=== PATIENT | male | born 1990 | race Caucasian/White ===

== ENCOUNTER 2018-08-24 19:16 | Emergency (ER) | payer OTHER, SELFPAY ==
[2018-08-24 19:32] VITALS: BP 137/96; PULSE 89; RESP 20; TEMP 36.8; O2SAT 98
--- NOTE | 2018-08-24 19:47 | DI.RAD_ITS ---
SYMPTOM/DIAGNOSIS: PAIN, TRAUMA RIGHT HAND: There is mild soft tissue swelling over the dorsum of the hand. There is no evidence of a fracture or dislocation.
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
== END 2018-08-24 21:48 | disposition home or self-care (01) ==
PROVIDERS: Emergency Provider Nurse Practitioner Family
DX: S60.221A Contusion of right hand, initial encounter (principal); W22.09XA Striking against other stationary object, initial encounter; Y99.0 Civilian activity done for income or pay
CPT/HCPCS: 29125; 99284; 73130; 99283; L3908

== ENCOUNTER 2019-05-31 19:42 | Emergency (ER) | payer OTHER, SELFPAY ==
[2019-05-31 19:45] VITALS: BP 167/89; PULSE 91; RESP 16; TEMP 36.9; O2SAT 98
--- NOTE | 2019-05-31 20:34 | DI.RAD_ITS ---
EXAM: XR FOOT RT COMPLETE INDICATION: pain, r/o fx 4th or 5th metatarsal and digits. COMPARISON: LEFT FOOT COMPLETE from 01/18/2013 TECHNIQUE: 2D digital imaging was performed. FINDINGS: Three views were obtained. There is a mildly displaced fracture of the midshaft of the proximal phal anx of the 5th toe. No other fracture seen. IMPRESSION:
--- NOTE | 2019-05-31 20:47 | ED.GENADUL_ITS ---
Discharge Plan Disposition Patient Disposition: HOME Condition: Good Discharge Details Chief Complaint: Orthopedic Clinical Impression: Fracture of toe Primary Care Provider: Doris Alvarez ED Provider: Jinny Campbell Home Meds and New Rx's Prescriptions: No Action ibuprofen [IBU] 600 mg tablet 600 mg PO QID PRN (Reason: pain) Qty: 20 RF: 0 Discharge Instructions Instructions: Toe Fracture (ED) Additional Instructions: Rest. Activities as tolerated. Elevate injury to prevent swelling. Ice to the area of discomfort for 15 min. 3-5 times daily. Motrin every 8 hours with food or Tylenol every 6 hours for soreness if needed over the counter for comfort. Followup with orthopedic doctor as discussed for reevaluation. Derrick tape and postoperative shoe for support until cleared by orthopedics. Return for any worsening or concerns sooner if needed. Referrals: Dameon Callaway MD [ [facility] STAFF PHYSICIAN] - Medical Decision Making Pleasant 28-year-old reports stopping his toe on his right foot. Patient ultimately presents with ecchymotic and swollen base of the fourth and fifth toes. X-ray reveals a fracture at the proximal phalanx of the fifth toe. No open fracture. Patient consents to derrick tape and postoperative shoe. Declines crutches. Referred to orthopedics. Rice encouraged. Prior to discharge, my usual and customary return precautions were reviewed with the patient - this included follow-up instructions and reasons to return to the Emergency Department if conditions worsens, does not improve as expected, or other new concerns arise. HPI General Date/Time Provider Initiated Documentation: 05/31/19 20:04 . HPI Narrative: Very pleasant 28-year-old patient presents to the emergency room after stubbing his toe yesterday. Patient reports persistent right fifth toe pain. Limping gait. Ecchymosis and swelling present. Patient denies any open wounds. Relieved when resting worse when ambulating. No other concerns or complaints. Related Data Home Medications Medication Instructions Recorded Confirmed ibuprofen [IBU] 600 mg PO QID PRN #20 tab 08/24/18 05/31/19 Previous Rx's Medication Instructions Recorded ibuprofen [IBU] 600 mg PO QID PRN #20 tab 08/24/18 Allergies Allergy/AdvReac Type Severity Reaction Status Date / Time animal dander Allergy Unverified 05/31/19 19:48 General Stated Complaint: Orthopedic AMITA: 3 Review of Systems Review of Systems ROS Unobtainable: All systems reviewed & are unremarkable except as noted in HPI and below ENT Ears, Nose, Mouth, and Throat: Denies neck pain Musculoskeletal Musculoskeletal: Denies back pain, Denies deformity, Denies neck pain and Denies numbness Integumentary/Breasts Skin/Breast: Denies wounds Neurologic Neurologic: Denies numbness and Denies paresthesias PFS Social History Smoking/Tobacco Use Status: Never Alcohol Intake: current Alcohol Intake frequency: a few times a month Alcohol type: beer Drug use: Never Do you feel safe at home: Yes Do you feel safe in your relationship?: Yes Exam Narrative Exam Narrative: CONST: Healthy appearing patient, in no acute distress. Well hydrated. Alert and alert. MUSCULOSKELETAL: Limping gait. Left foot with obvious ecchymosis and mild swelling at the base of the fourth and fifth toe. No oseguera pain with palpation, ankle pain with palpation. Tenderness at the foot noted with palpation of the fourth and fifth digits as well as the fourth and fifth meta tarsals. Pulses intact. Cap refill normal. No open wounds. SKIN: Normal. Dry. No rashes. NEURO: Alert and awake. Speech clear. PSYCH: Normal affect. Cooperative. Course Vital Signs Vital signs: Vital Signs Temperature 36.9 C 05/31/19 19:45 Pulse 91 H 05/31/19 19:45 Respiratory Rate 16 05/31/19 19:45 Blood Pressure 167/89 H 05/31/19 19:45 Pulse Oximetry 98 05/31/19 19:45 Temperature 36.9 C 05/31/19 19:45 Temperature Source Tympanic 05/31/19 19:45 Pulse 91 H 05/31/19 19:45 Respiratory Rate 16 05/31/19 19:45 Respiratory Effort 05/31/19 19:48 Blood Pressure 167/89 H 05/31/19 19:45 Pulse Oximetry 98 05/31/19 19:45 Pain Level 0 05/31/19 19:45 Comment 05/31/19 19:45
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
[2019-05-31 21:04] VITALS: BP 167/89; PULSE 91; RESP 16; O2SAT 98
== END 2019-05-31 21:10 | disposition home or self-care (01) ==
LOC: ER 21:10
PROVIDERS: Emergency Provider Physician Assistant; PCP Family Medicine
DX: S92.511A Displaced fracture of proximal phalanx of right lesser toe(s), initial encounter for closed fracture (principal); W22.8XXA Striking against or struck by other objects, initial encounter
CPT/HCPCS: 26720; 73630

== ENCOUNTER 2019-08-06 15:34 | Emergency (ER) | payer OTHER, SELFPAY ==
[2019-08-06 15:46] VITALS: BP 148/98; PULSE 94; RESP 16; TEMP 36.9; O2SAT 97
--- NOTE | 2019-08-06 15:58 | W.ED.GENAD ---
Discharge Plan Disposition Patient Disposition: HOME Condition: Improving Discharge Details Chief Complaint: Nausea/Vomit/Diar Clinical Impression: Nausea vomiting and diarrhea Primary Care Provider: Christie Salmon ED Provider: Marycarmen Pena Home Meds and New Rx's Prescriptions: New ondansetron HCl [Zofran] 4 mg tablet 4 mg PO Q8H PRN (Reason: nausea and vomiting) Qty: 7 RF: 0 Continued ibuprofen [IBU] 600 mg tablet 600 mg PO QID PRN (Reason: pain) Qty: 20 RF: 0 Discharge Instructions Instructions: Acute Nausea and Vomiting (ED), Acute Diarrhea (ED) Additional Instructions: Drink plenty of fluids and get plenty of rest. Take Zofran as needed and directed for nausea and vomiting. Alternate Tylenol and Motrin as needed and directed for pain. Follow a diet of bland foods while symptoms still present including bananas, rice, applesauce, toast, crackers, pretzels. Advance your diet as tolerated. Follow-up with your primary care doctor within the next week for reevaluation as needed. Return to the emergency department if you develop any worsening or new concerning symptoms. Discharge Data Discharge Physician: Marycarmen Pena Medical Decision Making 1600 -- 28-year-old male presents with vomiting, diarrhea and lower abdominal pain for the past 2 days. States he has had 2 episodes of vomiting today which is mainly been bile and between 10 and 15 episodes of watery brown diarrhea. Admits to intermittent lower crampy abdominal pain that improves with vomiting and diarrhea and then returns. He last had diarrhea here. Denies recent travel, recent antibiotics, new medications or foods. He does admit to sick contacts with his kids who have similar symptoms. Patient dry heaving on exam. Afebrile. Appears uncomfortable but nontoxic. Tenderness across lower abdomen. Differential diagnosis includes gastroenteritis, colitis, viral syndrome, diverticulitis. Will place an IV, bolus IV fluids, Zofran, Toradol and CT abdomen pelvis. 1720 --patient down in radiology and is now refusing CAT scan. He states he feels that he does not need it. He states his symptoms are not improved and when inquired further about this, he states that I just feel like I have to poop. Discussed with patient that he may have the symptoms over the next few days. Discussed that with refusing CAT scan, we may be missing other serious diagnoses and he is aware and still refusing and demonstrates capacity make decisions. 1800 --labs reviewed and unremarkable. Patient states he feels much better and feels good to go home. He was able to take sips of water without further vomiting. He was given a prescription for Zofran, advised to follow the brat diet. Usual and customary return precautions given prior to discharge. Medical Records Medical records reviewed: Yes I reviewed the patient's medical records. Lab Data Lab results reviewed: Yes I reviewed the patient's lab results. Labs: Laboratory Tests Range/Units 08/06/19 08/06/19 16:45 16:45 WBC (4.4-10.8) k/cumm 9.06 RBC (4.50-6.00) m/cumm 5.30 Hgb (13.5-17.5) g/dL 15.9 Hct (40.0-50.0) % 45.5 MCV (80-95) fL 85.8 MCH (27.0-33.0) pg 30.0 MCHC (32.0-36.0) g/dL 34.9 RDW (11.8-14.1) % 13.0 Plt Count (130-400) x1000/uL 366 MPV (8.0-11.0) fL 8.2 Immature Gran % 0.0 Neutrophils % 64.8 Lymphocytes % 27.8 Monocytes % 6.2 Eosinophils % 0.8 Basophils % 0.4 Absolute Neutrophils (1.2-6.7) k/cumm 5.87 Absolute Lymphocytes (1.2-3.4) k/cumm 2.52 Absolute Monocytes (0.11-0.7) k/cumm 0.56 Absolute Eosinophils (0.0-0.7) k/cumm 0.07 Absolute Basophils (0.0-0.2) k/cumm 0.04 Sodium (136-145) mmol/L 142 Potassium (3.5-5.1) mmol/L 3.7 Chloride (98-107) mmol/L 104 Carbon Dioxide (21.0-32.0) mmol/L 29.4 Anion Gap (3-11) mmol/L 8.6 BUN (7-18) mg/dL 10 Creatinine (0.70-1.30) mg/dL 0.93 Estimated GFR/1.73 m2 (mL/min/1.73m2) >= 60.00 Glucose (74-106) mg/dL 90 Calcium (8.5-10.1) mg/dL 9.0 Total Bilirubin (0.2-1.0) mg/dL 0.5 AST (15-37) U/L 32 ALT (16-63) U/L 70 H Alkaline Phosphatase (46-116) U/L 81 Total Protein (6.4-8.2) g/dL 8.0 Albumin (3.4-5.0) g/dL 4.2 Lipase (73-393) U/L 219 HPI General Mode of arrival: ambulatory. Date/Time Provider Initiated Documentation: 08/06/19 15:47. Limitations to Documentation: no limitations. Information obtained by: patient. History of Present Illness 28 year old M presents to the emergency department with the chief complaint of vomiting diarrhea, lower abdominal pain , described as moderate, Quality is described as other (crampy), and is localized to the abdomen. Patient reports no radiation. Patient started experiencing this day(s) (2) and it has been constant. No relieving factors improve symptom(s), No exacerbating factors reported . Patient notes fever/chills and nausea/vomiting; denies chest pain, cough, headaches and shortness of breath. Patient did receive the following treatments prior to arrival, none Related Data Home Medications Medication Instructions Recorded Confirmed ibuprofen [IBU] 600 mg PO QID PRN #20 tab 08/24/18 08/06/19 ondansetron HCl [Zofran] 4 mg PO Q8H PRN #7 tab 08/06/19 Previous Rx's Medication Instructions Recorded ibuprofen [IBU] 600 mg PO QID PRN #20 tab 08/24/18 ondansetron HCl [Zofran] 4 mg PO Q8H PRN #7 tab 08/06/19 Allergies Allergy/AdvReac Type Severity Reaction Status Date / Time animal dander Allergy Unverified 08/06/19 15:49 General Stated Complaint: Nausea/Vomit/Diar AMITA: 3 Review of Systems All systems reviewed & are unremarkable except as noted in HPI and below Constitutional Constitutional: Reports as per HPI, Denies chills and Denies fever(s) Eyes Eyes: Denies blurry vision ENT Ears, Nose, Mouth, and Throat: Denies dizziness, Denies sore throat and Denies throat swelling Cardiovascular Cardiovascular: Denies chest pain and Denies dyspnea Respiratory Respiratory: Denies cough and Denies dyspnea Gastrointestinal Gastrointestinal: Reports abdominal pain, Reports diarrhea and Reports vomiting Genitourinary Genitourinary: Denies hematuria and Denies dysuria Musculoskeletal Musculoskeletal: Denies back pain and Denies numbness Integumentary/Breasts Skin/Breast: Denies lesions and Denies rash Neurologic Neurologic: Denies dizziness, Denies focal weakness and Denies numbness Allergic/Immunologic Allergic/Immunologic: Denies throat swelling [facility] Medical History No significant past medical history (Acute) Surgical History Appendectomy 2002 Family History Mother Diabetes Essential hypertension Father Diabetes Essential hypertension Social History Smoking/Tobacco Use Status: Never Alcohol Intake: current Alcohol Intake frequency: a few times a month Alcohol type: beer Drug use: Never Current gender identity: female Do you feel safe at home: Yes Do you feel safe in your relationship?: Yes Exam Const General: cooperative, healthy appearing and no acute distress HENMT Head: normal to inspection Face and sinus: normal facial exam Eyes General: appearance normal, both eyes and all related structures EOM: EOM intact bilaterally Neck Neck: normal visual inspection and No submandibular swelling Lymphatic: no lymphadenopathy noted Chest Chest: normal inspection of the chest and no tenderness Resp Effort & Inspection: normal respiratory effort and able to speak in complete sentences Auscultation: clear to auscultation bilaterally Cardio Rate: regular rate Rhythm: regular rhythm GI Inspection: normal to inspection Palpation: soft, not firm, not rigid and tender (across lower abdomen) Auscultation: normal bowel sounds Skin General skin exam: no rashes or lesions noted Neuro General: alert, awake and oriented x3 Cognition: normal cognition Speech: speech normal Motor: muscle tone normal throughout Sensory Exam: no sensory deficits noted Extrem General: normal to inspection, full ROM, normal capillary refill, no calf tenderness bilaterally and no edema Psych Appearance: grossly normal Mental Status: mental status grossly normal Speech and Movement: speech and movement normal Affect: normal affect Course Vital Signs Vital signs: Vital Signs Temperature 98.4 F 08/06/19 15:46 Pulse 94 H 08/06/19 15:46 Respiratory Rate 16 08/06/19 15:46 Blood Pressure 148/98 H 08/06/19 15:46 Pulse Oximetry 97 08/06/19 15:46 Temperature 98.4 F 08/06/19 15:46 Temperature Source Skin 08/06/19 15:46 Pulse 94 H 08/06/19 15:46 Respiratory Rate 16 08/06/19 15:46 Respiratory Effort Non-Labored 08/06/19 15:46 Blood Pressure 148/98 H 08/06/19 15:46 Blood Pressure Position Sitting 08/06/19 15:46 Pulse Oximetry 97 08/06/19 15:46 Oxygen Delivery Method Room Air 08/06/19 15:46 Oxygen Flow Rate 0 08/06/19 15:46 Pain Level 6 08/06/19 15:46
[2019-08-06] MEDS: Ondansetron O.D.T. 4 MG TABEF (16:20)
--- NOTE | 2019-08-06 16:24 | NUR.NOTE ---
1615: pt prefers to wait for an available exam room prior to changing into a gown or getting IV MD aware Nursing Note:
[2019-08-06] MEDS: Normal Saline Flush 10 ML SYR IVP (16:45)
[2019-08-06] MEDS: Normal Saline 1,000 ML 1000 ML IV (16:45)
[2019-08-06] MEDS: Ketorolac 30 MG/ML VIAL IVP (16:52)
[2019-08-06] MEDS: Ondansetron 4 MG/2 ML VIAL IVP (16:54)
[2019-08-06 16:56] LABS: Absolute Basophil Count 0.04 k/cumm (0.0-0.2); Absolute Eosinophil Count 0.07 k/cumm (0.0-0.7); Absolute Lymphocyte Count 2.52 k/cumm (1.2-3.4); Absolute Monocyte Count 0.56 k/cumm (0.11-0.7); Absolute Neutrophil Count 5.87 k/cumm (1.2-6.7); Basophils % 0.4; Eosinophils % 0.8; HCT 45.5 % (40.0-50.0); HGB 15.9 g/dL (13.5-17.5); Lymphocytes % 27.8; Mean Corp. HGB Concentration 34.9 g/dL (32.0-36.0); Mean Corpuscular Volume 85.8 fL (80-95); Mean Platelet Volume 8.2 fL (8.0-11.0); Monocytes % 6.2; Neutrophils % 64.8; Platelet Count 366 x1000/uL (130-400); White Blood Cell Count 9.06 k/cumm (4.4-10.8)
[2019-08-06 17:09] LABS: ALT 70 U/L (16-63); AST 32 U/L (15-37); Albumin 4.2 g/dL (3.4-5.0); Alkaline Phosphatase 81 U/L (46-116); Anion Gap 8.6 mmol/L (3-11); BUN 10 mg/dL (7-18); Bilirubin, Total 0.5 mg/dL (0.2-1.0); CO2 29.4 mmol/L (21.0-32.0); CREATININE 0.93 mg/dL (0.70-1.30); Chloride 104 mmol/L (98-107); Glucose 90 mg/dL (74-106); Lipase 219 U/L (73-393); Potassium 3.7 mmol/L (3.5-5.1); Sodium 142 mmol/L (136-145)
[2019-08-06 17:58] VITALS: BP 119/65; PULSE 82; RESP 18; TEMP 36.7; O2SAT 98
[2019-08-06 18:27] VITALS: BP 123/57; PULSE 78; RESP 17; O2SAT 99
[2019-08-06 18:35] VITALS: BP 123/57; PULSE 85; RESP 18; TEMP 36.9; O2SAT 98
== END 2019-08-06 18:40 | disposition home or self-care (01) ==
PROVIDERS: Emergency Provider Physician Assistant; PCP Family Medicine
DX: R11.2 Nausea with vomiting, unspecified (principal); R19.7 Diarrhea, unspecified
CPT/HCPCS: 80053; 83690; 96361; 96374; 96375; 99284; 85025; J1885; J2405

== ENCOUNTER 2020-11-19 11:42 | Outpatient (REF) | payer OTHER, SELFPAY ==
[2020-11-20 13:31] LABS: COVID-19 RT-PCR UVMMC Result Negative (Negative)
== END 2020-11-19 11:43 | disposition home or self-care (01) ==
LOC: NCHCN 11:42
PROVIDERS: PCP Family Medicine; Visit Provider Nurse Practitioner Family
DX: Z20.828 Contact with and (suspected) exposure to other viral communicable diseases (principal)
CPT/HCPCS: U0003

== ENCOUNTER 2020-12-05 14:50 | Outpatient (REF) | payer OTHER, SELFPAY ==
[2020-12-05 20:46] LABS: Hemoglobin A1C 5.1 % (<5.7)
== END 2020-12-05 14:51 | disposition home or self-care (01) ==
LOC: NCHCN 14:50
PROVIDERS: PCP Family Medicine; Visit Provider Family Medicine
DX: R63.1 Polydipsia (principal); Z00.8 Encounter for other general examination
CPT/HCPCS: 83036

== ENCOUNTER 2021-01-20 00:10 | Emergency (ER) | payer OTHER, SELFPAY ==
[2021-01-20 00:15] VITALS: BP 139/79; PULSE 90; RESP 14; TEMP 36.4; O2SAT 96
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
== END 2021-01-20 00:50 | disposition home or self-care (01) ==
PROVIDERS: Emergency Provider Student in an Organized Health Care Education/Training Program; PCP Family Medicine
DX: S01.312A Laceration without foreign body of left ear, initial encounter (principal); W01.198A Fall on same level from slipping, tripping and stumbling with subsequent striking against other object, initial encounter
CPT/HCPCS: 12013

== ENCOUNTER 2021-02-20 09:42 | Emergency (ER) | payer OTHER, SELFPAY ==
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
[2021-02-20 09:46] VITALS: PULSE 71; RESP 14; TEMP 36.9; O2SAT 98
[2021-02-20 10:17] LABS: HCT 47.8 % (40.0-50.0); HGB 16.1 g/dL (13.5-17.5); MCH 29.9 pg (27.0-33.0); MCHC 33.7 % (32.0-36.0); MCV 88.7 fL (80-95); Platelet Count 287 10^3/uL (130-400); RBC 5.39 10^6/uL (4.36-5.78); RDW 12.3 % (11.8-14.1); RDW-SD 40.4 fL; WBC 6.36 10^3/uL (4.4-10.8)
[2021-02-20 10:24] LABS: Anion Gap 7.7 mmol/L (3-11); BUN 17 mg/dL (7-18); CO2 29.3 mmol/L (21.0-32.0); CREATININE 0.9 mg/dL (0.70-1.30); Chloride 104 mmol/L (98-107); Glucose 97 mg/dL (74-106); Potassium 4.4 mmol/L (3.5-5.1); Sodium 141 mmol/L (136-145)
[2021-02-20] MEDS: Normal Saline 250 ML 500 ML IV (10:30)
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
[2021-02-20] MEDS: Omnipaque 350 MG/ML 100 ML BTL IJ (10:42)
[2021-02-20] MEDS: Ketorolac 15 MG/ML VIAL IVP (11:24)
[2021-02-20 11:32] VITALS: BP 122/65; PULSE 67; RESP 24; TEMP 36.8; O2SAT 97
== END 2021-02-20 11:41 | disposition home or self-care (01) ==
LOC: ER 11:37
PROVIDERS: Emergency Provider Emergency Medicine; PCP Family Medicine
DX: S20.222A Contusion of left back wall of thorax, initial encounter (principal); M54.2 Cervicalgia; M54.6 Pain in thoracic spine; V63.5XXA Driver of heavy transport vehicle injured in collision with car, pick-up truck or van in traffic accident, initial encounter; Y99.0 Civilian activity done for income or pay
CPT/HCPCS: 36415; 74177; 80048; 85027; 96361; 96374; 99285; 70450; 71260; 72125; 99284; J1885; J3490

== ENCOUNTER 2021-03-11 18:16 | Outpatient (REF) | payer OTHER, SELFPAY ==
[2021-03-13 13:37] LABS: COVID-19 RT-PCR UVMMC Result Negative (Negative)
== END 2021-03-11 18:17 | disposition home or self-care (01) ==
LOC: LBN 18:16
PROVIDERS: PCP Family Medicine; Visit Provider Nurse Practitioner Family
DX: J02.9 Acute pharyngitis, unspecified (principal); Z20.822 Contact with and (suspected) exposure to COVID-19
CPT/HCPCS: U0003; 87070

== ENCOUNTER 2021-03-19 05:16 | Outpatient (CLI) | payer OTHER, SELFPAY ==
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
== END 2021-03-19 05:36 ==
PROVIDERS: PCP Family Medicine; Visit Provider Nurse Practitioner Family
DX: R10.32 Left lower quadrant pain (principal)
CPT/HCPCS: 74019

== ENCOUNTER 2021-04-07 14:07 | Outpatient (REF) | payer OTHER, SELFPAY ==
[2021-04-09 12:27] LABS: COVID-19 RT-PCR UVMMC Result Negative (Negative)
== END 2021-04-07 14:08 | disposition home or self-care (01) ==
LOC: NCHCN 14:07
PROVIDERS: PCP Family Medicine; Visit Provider Family Medicine
DX: Z20.822 Contact with and (suspected) exposure to COVID-19 (principal)
CPT/HCPCS: U0003

== ENCOUNTER → 2022-02-15 01:49 | Outpatient (CLI) | payer OTHER, SELFPAY ==
--- NOTE | 2022-02-15 07:45 | DI.MRI_ITS ---
Exam(s) MR LOWER JOINT RT WO EXAM: MR LOWER JOINT RT WO CLINICAL HISTORY: persistent Right knee pain/swelling post lifting, rt knee pain, M25.561. TECHNIQUE: Multiplanar multisequence MRI was performed. COMPARISON: No exams were available for comparison FINDINGS: BONES: There is no fracture or contusion pattern. JOINTS: Articular cartilage is unremarkable. There is a small amount of fluid in the joint space. TENDONS: Extensor mechanism: Unremarkable. Medial retinaculum: Unremarkable. Lateral retinaculum: Unremarkable. Popliteus: Unremarkable. MUSCLES: Unremarkable. MENISCI: The medial meniscus is unremarkable. The lateral meniscus is unremarkable. SOFT TISSUES: Unremarkable. LIGAMENTS: Anterior Cruciate: Unremarkable. Posterior Cruciate: Unremarkable. Medial Collateral:Unremarkable. Lateral Collateral: Unremarkable. OTHER: IMPRESSION: 1. There is no evidence of a meniscal or ligament tear. 2. No acute abnormality. DATA REPOSITORY:
== END ==
PROVIDERS: PCP Family Medicine; Visit Provider Nurse Practitioner Family
DX: M25.561 Pain in right knee (principal)
CPT/HCPCS: 73721

== ENCOUNTER 2023-01-04 22:03 | Emergency (ER) | payer OTHER, SELFPAY ==
[2023-01-04] VITALS (10 sets, daily range): BP systolic 127–138; BP diastolic 81–105; PULSE 82–98; RESP 16–26; TEMP 36.8; O2SAT 97–100
--- NOTE | 2023-01-04 22:00 | RT.EKG_ITS ---
APPROVED REPORT Exam: Resting ECG Reason for Exam: chest pain Patient Location: E HR:83 bpm ECG Measurements Heart Rate 83 AXIS NC 167 P 35 QRSd 77 QRS 4 QT 348 T 35 QTc 410 Conclusion Sinus rhythm...normal P axis, V-rate 60- 99. Sinus. Normal axis. Normal intervals. No STEMI. I have reviewed and interpreted ECG and agree with software generated interpretation.
--- NOTE | 2023-01-04 22:15 | DI.RAD_ITS ---
Exam(s) XR CHEST 2V PA LATERAL EXAM: XR CHEST 2V PA LATERAL CLINICAL HISTORY: chest pain TECHNIQUE: 2D digital imaging was performed. COMPARISON: No exams were available for comparison FINDINGS: HEART: Normal size. Aorta: Not dilated. PULMONARY VASCULATURE: Normal. LUNGS: Clear. PLEURAL SPACE: No pleural effusion or pneumothorax. BONE:Unremarkable for age. IMPRESSION: No acute abnormality. DATA REPOSITORY: RADIATION DOSE DELIVERED:
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
[2023-01-04 22:36] LABS: Abs Immature Grans 0.02 10^3/uL (0.0-0.06); Absolute Basophil Count 0.07 10^3/uL (0.0-0.2); Absolute Eosinophil Count 0.29 10^3/uL (0.0-0.7); Absolute Lymphocyte Count 3.84 10^3/uL (1.2-3.4); Absolute Monocyte Count 0.55 10^3/uL (0.1-0.8); Absolute Neutrophil Count 3.01 10^3/uL (1.2-6.7); Basophils % 0.9; Eosinophils % 3.7; HCT 45.6 % (40.0-50.0); HGB 15.8 g/dL (13.5-17.5); Immature Grans % 0.3; Lymphocytes % 49.4; MCH 29.7 pg (27.0-33.0); MCHC 34.6 % (32.0-36.0); MCV 86 fL (80-95); Monocytes % 7.1; Neutrophils % 38.6; Platelet Count 300 10^3/uL (130-400); RBC 5.32 10^6/uL (4.36-5.78); RDW 12.7 % (11.8-14.1); RDW-SD 39.5 fL; WBC 7.78 10^3/uL (4.4-10.8)
[2023-01-04 22:48] LABS: Anion Gap 7.4 mmol/L (3-11); BUN 13 mg/dL (7-18); CO2 29.6 mmol/L (21.0-32.0); CREATININE 0.9 mg/dL (0.70-1.30); Calcium 9.1 mg/dL (8.5-10.1); Chloride 103 mmol/L (98-107); Glucose 94 mg/dL (74-106); Potassium 3.7 mmol/L (3.5-5.1); Sodium 140 mmol/L (136-145)
[2023-01-04 23:06] LABS: Troponin I < 50 ng/L (<or=60)
[2023-01-04] MEDS: Lidocaine 2% Viscous 15 ML CUP (23:24)
[2023-01-04] MEDS: Simethicone/Sod Bicarb/Cit Ac, 4 gram PACKET 1 PACKET PO (23:26)
--- NOTE | 2023-01-04 23:47 | DI.VRAD_ITS ---
PROCEDURE INFORMATION: Exam: XR Chest Exam date and time: 01/04/2023 10:54 PM Age: 32 years old Clinical indication: Other: General; Patient HX: Chest pain TECHNIQUE: Imaging protocol: Radiologic exam of the chest. Views: 2 views. COMPARISON: CT CHEST/ABD/PEL W 02/20/2021 10:34 AM FINDINGS: Lungs: Unremarkable. No consolidation. Pleural spaces: Unremarkable. No pleural effusion. No pneumothorax. Heart/Mediastinum: Unremarkable. No cardiomegaly. Bones/joints: Unremarkable. IMPRESSION: No acute findings. Dictated and Authenticated by: Rui Ryder MD. Ordering:EDINSON Esposito MD
[2023-01-04] MEDS: Pantoprazole 40 MG VIAL IVP (23:53)
[2023-01-04] MEDS: Droperidol 5 MG/2 ML VIAL 2.5 MG IVP (23:54)
[2023-01-04] MEDS: Normal Saline 1,000 ML 1000 ML IV (23:55)
[2023-01-05] VITALS (8 sets, daily range): BP systolic 110–117; BP diastolic 59–66; PULSE 56–92; RESP 13–21; TEMP 36.9; O2SAT 97–100
[2023-01-05 00:57] LABS: ALT 29 U/L (16-63); AST 17 U/L (15-37); Albumin 4.1 g/dL (3.4-5.0); Alkaline Phosphatase 89 U/L (46-116); Bilirubin, Direct 0.1 mg/dL (0.0-0.2); Bilirubin, Total 0.5 mg/dL (0.2-1.0); Lipase 68 U/L (16-77); Total Protein 8.1 g/dL (6.4-8.2)
[2023-01-05 01:27] LABS: Troponin I < 50 ng/L (<or=60)
== END 2023-01-05 01:48 | disposition home or self-care (01) ==
PROVIDERS: Nurse Practitioner Acute Care; Emergency Provider Physician Assistant; PCP Family Medicine
DX: R07.9 Chest pain, unspecified (principal); R11.10 Vomiting, unspecified; R09.89 Other specified symptoms and signs involving the circulatory and respiratory systems
CPT/HCPCS: 36415; 80048; 80076; 83690; 93005; 96361; 96374; 96375; 99284; 71046; 84484; 85025; 93010; J1790

== ENCOUNTER 2023-01-14 00:53 | Outpatient (CLI) | payer OTHER, SELFPAY ==
--- NOTE | 2023-01-14 09:45 | DI.RAD_ITS ---
Exam(s) RF BARIUM SWALLOW EXAM: RF BARIUM SWALLOW CLINICAL HISTORY: PHARYNGEAL PHASE DYSPHAGIA, R13.13 TECHNIQUE: 2D and realtime digital imaging was performed. CONTRAST MATERIAL: Oral barium contrast was administered. COMPARISON: CR,XR XR CHEST 2V PA LATERAL from 01/04/2023 FINDINGS: CHEST X-RAY: The heart and pulmonary vasculature are within normal limits. The lungs are clear. No pl eural effusion or pneumothorax is present. The bones are within normal limits for the patient's age. ESOPHAGRAM: The esophagus is patent with no evidence for erosions, fold thickening, strictures, or ma sses. With regards to the motility, there is a normal primary stripping wave. No tertiary contraction s were noted. There is a small hiatal hernia present. The patient had no difficulty swallowing a bar ium tablet. IMPRESSION: There is a small hiatal hernia. Otherwise unremarkable barium swallow. RADIATION DOSE DELIVERED: lupe Schmitt=18.5 mGy
[2023-01-14] MEDS: Barium Sulfate 700 MG TAB PO (10:53)
[2023-01-14] MEDS: Simethicone/Sod Bicarb/Cit Ac, 4 gram PACKET 1 PACKET PO (10:53)
[2023-01-14] MEDS: Barium Sulfate 98% W/W 140 ML BTL PO (10:54)
[2023-01-14] MEDS: Barium Sulfate 60% W/V 355 ML BTL PO (10:54)
== END 2023-01-14 01:13 ==
LOC: DI 00:53
PROVIDERS: PCP Family Medicine; Visit Provider Internal Medicine
DX: R13.13 Dysphagia, pharyngeal phase (principal)
CPT/HCPCS: 74221; J3490

== ENCOUNTER 2023-01-26 09:27 | Day surgery (SDC) | payer OTHER, SELFPAY ==
[2023-01-26 09:30] VITALS: BP 130/85; PULSE 79; RESP 18; TEMP 36.4; O2SAT 99
[2023-01-26] MEDS: Lactated Ringers 1,000 ML 80 ML IV (10:05)
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
--- NOTE | 2023-01-26 10:12 | W.PM.PROGNOT ---
Date of Service Date of service: 01/26/23 Time of Service: 10:12 Assessment and Plan Assessment and plan (1) GERD (gastroesophageal reflux disease): Status: Chronic Assessment and plan: Wilfrido is here today for an upper endoscopy. He has had no new symptoms. We discussed the procedure and the complications. He understands the complications and wishes to proceed. He has no further questions. Risks, benefits and complications have been reviewed. Complications include but are not limited to bleeding, pain, perforation, sore throat, aspiration, and adverse reaction to the medications. Questions were entertained and answered to their satisfaction and they wished to proceed. No guarantees were given or implied. (2) Dysphagia: Status: Acute Subjective Subjective Interval history since last seen: Wilmer is here today for an upper endoscopy. He has been having some reflux despite his famotidine as well as some dysphagia. I saw him on the office and we reviewed the procedure in detail as well as the risks and benefits. He has had no new symptoms since I saw him in the office. Exam [facility] Head: normocephalic and atraumatic Resp Effort & Inspection: normal respiratory effort Objective Last Vital Signs Temp 97.5 F L 01/26/23 09:30 Pulse 79 01/26/23 09:30 Resp 18 01/26/23 09:30 BP 130/85 01/26/23 09:30 Pulse Ox 99 01/26/23 09:30 Time Spent with Patient Time Spent with Patient: <25 minutes Time was spent: other
[2023-01-26 10:17] VITALS: BMI 27.4
--- NOTE | 2023-01-26 10:34 | STOM_PTH ---
PATIENT: Wilfrido Garcia LOC: [facility] U#:[id number] AGE/SX: 32/M ROOM: RE01/26/[address]: Divine Mueller MD : 1990 BED: DIS: 01/26/2023 SPEC #: [id number] RECD: 01/26/23 12:43 STATUS: GRACIE REQ #: [id number] ISRA: 01/26/23 10:[address]: Divine Mueller DEPT: Surgical Specimen RECD BY: Nahomi Henderson ENTERED: 01/26/23 12:45 SP TYPE: STOMACH OTHR DR: Christie Salmon Tissues: 1 - STOMACH BIOPSY 2 - STOMACH BIOPSY 3 - STOMACH BIOPSY 4 - ESOPHAGUS BIOPSY Procedures: GROSS AND MICRO LEVEL 4 Comments: [id number]
[2023-01-26 10:45] VITALS: BP 122/81; PULSE 86; RESP 16; TEMP 36.8; O2SAT 94
--- NOTE | 2023-01-26 11:08 | ENDO_ITS ---
Date of service: 01/26/23 Time of Service: 11:08 Endoscopy Report DATE OF PROCEDURE: 01/26/23 PRE-OP DIAGNOSIS: GERD, dysphagia POST-OP DIAGNOSIS: same (bile reflux) PROCEDURE: EGD with biopsies SURGEON: Divine Mueller ANESTHESIA TYPE: General:No Airway ESTIMATED BLOOD LOSS: 5 PATHOLOGY: other (Bx of stomach and GE junction) COMPLICATIONS: None DISPOSITION: same day INDICATIONS: Wilfrido is a pleasant 32-year-old gentleman with a history of reflux and heartburn as well as dysphagia.? His heartburn does seem to be controlled on famotidine 40 mg daily as long as he remembers to take it.? I went over the anatomy and patho physiology of dysphagia and heartburn.? We reviewed some things that he can do at home to try to minimize symptoms.? We reviewed a low acid diet, not eating within 2 hours of going to bed, and sleeping with the head of the bed up either on a wedge pillow or by placing cinderblocks under the head of the bed.? I also discussed with him keeping his weight down as that will impact his reflux.? I reviewed the procedure in detail.? Risks, benefits and complications have been reviewed. Complications include but are not limited to bleeding, pain, perforation, sore throat, aspiration, and adverse reaction to the medications.? Questions were entertained and answered to their satisfaction and they wished to proceed. No guarantees were given or implied.? I did discuss balloon dilatation with the patient as well. We reviewed the fact that, if I do a balloon dilatation, the risk of esophageal perforation does go up slightly.? The patient seems to have a good understanding of the complications and risks and wishes to proceed. FINDINGS: inflammation of the stomach and GE junction PROCEDURE DESCRIPTION: After informed consent was obtained the patient was take to the procedure room and placed in a supine position. Monitors were applied and a time out was done. The patients name, date of , procedure type, allergies to medications and metal in their body was reviewed. A bite block was placed and the patient was sedated. Once sedated and comfortable the gastroscope was advanced through the oropharynx which was grossly normal into the esophagus. The proximal and mid- esophagus were normal. In the distal esophagus there was some inflammation noted. The scope was advanced into the stomach and through the pylorus into the 3rd portion of the duodenum. The duodenum was noted to be normal. The scope was retracted back into the stomach. There was some inflammation noted as well as a few gastric polyps. Biopsies were done to rule out H. pylori. There were no ulcers. The scope was retroflexed. The cardia and fundus were noted to be normal. There was no hiatal hernia noted. The scope was retracted back into the esophagus and biopsies were done of the GE junction to rule out Topete's. The Z line was regular. The GE junction was at 35 cm. The scope was removed and the patient was woken up and taken back to [facility] in stable condition. Follow up: 2 weeks
--- NOTE | 2023-01-26 11:11 | W.PM.DSUDISC ---
Date of service: 01/26/23 Time of Service: 11:22 Discharge Plan Disposition Patient Disposition: Home Condition: Stable Discharge Details Reason For Visit: GERD, Dysphagia Attending Provider: Divine Mueller Primary Care Provider: Christie Salmon Home Meds and New Rx's Prescriptions: New omeprazole 40 mg capsule,delayed release(DR/EC) 40 mg PO DAILY Qty: 30 0RF sucralfate [Carafate] 1 gram tablet 1 g PO Q6H Qty: 56 0RF Rx Instructions: Take 30 minutes before meals and at bedtime Continued albuterol sulfate 90 mcg/actuation HFA aerosol inhaler 2 puff inhalation Q6H PRN (Reason: shortness of breath or wheezing) Qty: 6.7 0RF Rx Instructions: take 2 puffs every 6 hours as needed for shortness of breath and/or cough Zyrtec 10 mg capsule 10 mg PO DAILY PRN Centrum Silver Men 300-600-300 mcg tablet 1 tab PO DAILY ibuprofen [IBU] 600 mg tablet 800 mg PO TID PRN (Reason: pain) Hold Instructions: Home Medication placed on hold at Doctor's office fluticasone propionate [Flovent HFA] 110 mcg/actuation HFA aerosol inhaler 2 puff inhalation BID acetaminophen [Tylenol Extra Strength] 500 mg tablet 500 mg PO Q6H PRN ondansetron 4 mg tablet,disintegrating 4 mg PO TID PRN (Reason: nausea and vomiting) Qty: 6 0RF ascorbic acid (vitamin C) [Vitamin C] 500 mg Tablet 500 mg PO DAILY Discontinued famotidine 40 mg tablet 40 mg PO DAILY Discharge Instructions Additional Instructions: Findings: Inflammation of the stomach and esophagus New Medications: Omeprazole 40 mg daily Carafate 1 tab 30 minutes before meals and at bedtime Follow up: 2 weeks Please call if you develop: fevers >101.5 Nausea or Vomiting Abdominal pain that is not transient Rectal bleeding that is more then a tbsp A hard abdomen and inability to pass gas DAY SURGERY UNIT POST ENDOSCOPY INSTRUCTIONS Instructions for everyone who is given Anesthesia: For your safety, please do the following for the next 24 Hours: a. Do not drive or operate dangerous equipment b. Do not drink alcohol beverages or use any recreational drugs for the first 24 hours or while taking pain medications. The medications in your body may have a reaction that can be dangerous. c. Do not make any important decisions or sign any important papers 1. Generally there are no restrictions on your activity after a day or so has gone by, but you may feel a bit fatigued for a few days. 2. After you arrive home you may have a light meal and return to a normal diet as you can tolerate it without feeling sick to your stomach. 3. After surgery, you may feel pain or discomfort. This should be only transient, but if it persists please contact your doctor. 4. If there are any questions regarding the findings of your procedure, please feel free to contact your doctor. 6. If you are unable to contact your doctor with a problem, contact the hospital at [phone]. 7. Continue all your regular medications unless directed otherwise. I understand the above instructions and have no questions. Signature of Patient or Responsible Adult Escort Date/Time Name of Responsible Adult Escort Signature of Nurse Date/Time Stand Alone Forms: Anesthesia Discharge Inst., Tristen Gould (DSU) Referrals: Divine Mueller MD [ [facility] STAFF PHYSICIAN] - Activity:: Activity as Tolerated Diet:: As Tolerated Discharge Orders Discharge Orders: Discharge Order (Routine); Ordered 01/26/23 Ordered By: Divine Mueller DS: Diagnosis Discharge Diagnosis (1) GERD (gastroesophageal reflux disease): Status: Chronic Asessment and Plan: Patient is seen and examined after their endoscopy. Patient has minimal sore throat. They have been able to tolerate liquids. They do not have any Nausea or Vomiting. They are not having any chest pain or shortness of breath. They have been able to pass gas and are not having any abdominal pain or distention. they have not vomited any blood. The vital signs have been stable-see nursing notes. We discussed findings on their endoscopy We reviewed the importance of lifestyle modifications- see diet recommendations We reviewed any new medications that the patient may be prescribed- see medicine reconciliation. Patient will either be sent a letter with the biopsy results or follow up in the office- see discharge instructions Patient was given explicit instructions for emergency follow up post endoscopy- see discharge instructions Patient verbalized understanding and was discharged in stable and satisfactory condition. See nursing notes. (2) Dysphagia: Status: Acute
--- NOTE | 2023-01-26 11:21 | W.ANESPOSTOP ---
Postoperative Evaluation Date, Time and Location Date Performed: 01/26/23 Time Performed: 11:21 Patient Location: Day Surgery Unit Vital Signs Most Recent Imported Vital Signs: Most Recent Vital Signs Temp Pulse Resp BP Pulse Ox 36.8 C 86 16 122/81 94 01/26/23 10:45 01/26/23 10:45 01/26/23 10:45 01/26/23 10:45 01/26/23 10:45 Pain Score Most Recent Pain Score: Most Recent Pain Score Pain Level 0 01/26/23 10:45 Assessment Mental Status: Awake (Alert & Oriented to Patient Baseline) Airway and Respiratory Function: Patent airway with normal (patient baseline) respiratory exam Cardiovascular Function: Hemodynamically Stable Hydration Status: Adequately Hydrated Nausea & Vomiting: No Nausea or Vomiting Pain: Pt. Denies Any Pain Peripheral Nerve Block: Patient did not receive a nerve block
[2023-01-26 11:23] VITALS: BP 128/78; PULSE 78; RESP 16; TEMP 36.1; O2SAT 97
== END 2023-01-26 11:50 | disposition home or self-care (01) ==
PROVIDERS: PCP Family Medicine; Visit Provider Surgery
PROC: 0DJ68ZZ Inspection of Stomach, Via Natural or Artificial Opening Endoscopic (ICD-10-PCS; CPT 43235; principal; 2023-01-26 10:00)
DX: K21.9 Gastro-esophageal reflux disease without esophagitis (principal); R13.10 Dysphagia, unspecified; K31.7 Polyp of stomach and duodenum; K31.89 Other diseases of stomach and duodenum; K22.89 Other specified disease of esophagus
CPT/HCPCS: 43239; 88305

== ENCOUNTER 2023-03-07 21:33 | Emergency (ER) | payer OTHER, SELFPAY ==
[2023-03-07 21:36] VITALS: BP 167/104; PULSE 100; RESP 18; TEMP 37; O2SAT 98
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
[2023-03-07] MEDS: Acetaminophen 325 MG TAB 650 MG PO (22:41)
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
[2023-03-07] MEDS: Cyclobenzaprine 10 MG TAB, 3 TABS/BTL PO (23:36)
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
[2023-03-08 00:56] VITALS: BP 138/82; PULSE 88; RESP 18; TEMP 37; O2SAT 98
== END 2023-03-08 00:58 | disposition home or self-care (01) ==
PROVIDERS: Emergency Provider Physician Assistant; PCP Family Medicine
DX: M54.2 Cervicalgia (principal); S00.83XA Contusion of other part of head, initial encounter; X58.XXXA Exposure to other specified factors, initial encounter
CPT/HCPCS: 99284; 70486; 72125

== ENCOUNTER 2023-11-14 12:45 | Outpatient (REF) | payer OTHER, SELFPAY ==
[2023-11-14 23:34] LABS: HIV-1/2 Ag & Ab Screen Negative (Negative)
[2023-11-14 23:35] LABS: Hepatitis C Ab w Rflx HCV PCR Negative (Negative)
[2023-11-15 10:39] LABS: Syphilis Serology (RPR) Negative (Negative)
== END 2023-11-14 12:46 | disposition home or self-care (01) ==
LOC: NCHCN 12:45
PROVIDERS: PCP Family Medicine; Visit Provider Family Medicine
DX: Z11.59 Encounter for screening for other viral diseases (principal)
CPT/HCPCS: 86803; 87389; 87491; 87591; 86592

== ENCOUNTER 2024-02-14 16:18 | Outpatient (REF) | payer OTHER, SELFPAY ==
--- OUTSIDE RECORDS SUMMARY | 2024-02-14 16:21 | XMS_ITS | Continuity of Care Document ---
Author Name Unknown Organization [facility] Amb[facility] Address [address] [place] [address] Encounter [facility] FIN NBR [id number] Date(s): 06/04/22 - 06/04/22 [facility] [address] [place], [place] [address] Encounter Diagnosis Encounter for screening for COVID-19(Discharge Diagnosis) - 06/04/22 Discharge Disposition: Home or Self Care Attending Physician: Yue Young PA-C Problem List Condition Confirmation Course Effective Dates Status Health [facility] Informant Disease caused by 2019 novel coronavirus 1 Confirmed 06/04/22 Active 1Problem added by Rule (IC_COVID19_AUTO_PROBLEM) following SARS-CoV-2 (COVID-19) Antigen (Binax) POCT from Nasal Swab collected on 04-JUN-2022 14:21:00 EDT tested positive for COVID-19. 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 Yes *NA* (06/04/22 2:21 PM) SARS-CoV-2 (COVID-19) Ag (Binax) [Negati ve] Positive *ABN* (06/04/22 2:21 PM)
== END 2024-02-14 16:19 | disposition home or self-care (01) ==
LOC: LBN 16:18
PROVIDERS: PCP Family Medicine; Visit Provider Nurse Practitioner Family
DX: J02.9 Acute pharyngitis, unspecified (principal)
CPT/HCPCS: 87070

== ENCOUNTER 2024-11-11 13:34 | Emergency (ER) | payer OTHER, MEDICAID, SELFPAY ==
[2024-11-11 13:39] VITALS: PULSE 68; RESP 20; TEMP 36.8; O2SAT 98
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
[2024-11-11 14:04] VITALS: PULSE 68; RESP 20; TEMP 36.8; O2SAT 98
[2024-11-11] MEDS: Erythromycin Ophth Oint 3.5 GM TUBE OD (14:13)
[2024-11-11] MEDS: Fluorescein STRIPS 100/BOX 1 MG (14:14)
[2024-11-11 14:22] VITALS: BP 143/84; PULSE 78; RESP 18; O2SAT 97
== END 2024-11-11 14:39 | disposition home or self-care (01) ==
LOC: ER 14:42
PROVIDERS: Emergency Provider Nurse Practitioner Family; PCP Family Medicine
DX: H00.012 Hordeolum externum right lower eyelid (principal)
CPT/HCPCS: 99283